=== PATIENT | female | born 1990 | race African-American/Black ===

== ENCOUNTER 2017-09-28 17:05 | Emergency (ER) | payer MEDICAID, OTHER ==
[~2017-09-28] VITALS: Ht 162.6 cm; Wt 112.3 kg
[~2017-09-28 17:05] MED LIST: Z.0.NO CURRENT MEDS
[2017-09-28 17:26] VITALS: BP 177/99; PULSE 120; RESP 16; TEMP 100.7; O2SAT 98
[2017-09-28] MEDS ORDERED: ACETAMINOPHEN 325 MG TAB PO ONE (17:45)
[2017-09-28] MEDS ORDERED: BENZ100 PO (18:22)
[2017-09-28] MEDS ORDERED: AZIT250T3 PO (18:22)
--- NOTE | 2017-09-28 18:27 | PD ---
HPI Chief Complaint: Cold / Flu Symptoms Time Seen by Provider: 17:39 Travel History International Travel<30 days: No Contact w/Intl Traveler<30days: No Traveled to known affect area: No History of Present Illness HPI 26-year-old female that presents to the ED for evaluation of cold-like symptoms. Patient has a cold like symptoms for about 2 days. Per patient started last night. Symptoms of sore throat, congestion and body aches. She states having cough today and more fevers and chills today. She is concerned she might have the flu. She did not get a flu shot this year. Denies any other medical issues. No history of asthma or COPD. She states that she has not been in contact with anybody with the flu. Denies any urinary or bowel movement issues. No abdominal pain. Mainly cough and congestion and body aches. Has not seen anybody for this. No recent travel. PFSH Past Medical History Cardiovascular Problems: Yes (HTN) Diminished Hearing: No Hypertension: Yes Immunizations Current: Yes Tetanus Vaccination: Unknown Influenza Vaccination: No ?: Not : 0 Past Surgical History Oral Surgery: Yes Social History Alcohol Use: No Tobacco Use: No Substance Use: No Allergies-Medications (Allergen,Severity, Reaction): Coded Allergies: No Known Allergies (Verified Adverse Reaction, Unknown, 09/28/17) Reported Meds & Prescriptions Reported Meds & Active Scripts Active Magic Mouthwash Adult Liq (Multi-Ingredient Mouthwash/Gargle) 120 Ml Susp 5 Ml SWISH-SWAL ACHS Each 5mL contains: Nystatin 200,000units, Diphenhydramine 4.25mg, Viscous Lidocaine 10mg, Palm syrup 0.8 mL Azithromycin 250 Mg Tab 250 Mg PO DIRECTED Take 2 tabs (500 mg) on day 1 then 1 tab daily x 4 days. Tessalon Perles (Benzonatate) 100 Mg Cap 200 Mg PO TID PRN Reported No Current Meds (Miscellaneous Medication) Misc Review of Systems Except as stated in HPI: all other systems reviewed are Neg Physical Exam Narrative GENERAL: Well-nourished, well-developed patient in no apparent distress. SKIN: Warm and dry. HEAD: Atraumatic. Normocephalic. EYES: Pupils equal and round reactive to light and accommodation. No scleral icterus. No injection or drainage. ENT: No nasal bleeding or discharge. Mucous membranes pink and moist. TMs are clear with no sign of infection or perforation. No mastoid tenderness. Ear canals are intact bilaterally. No lymphadenopathy. Nostril mucosa is red and moist with clear mucus noted. No sinus tenderness to palpation noted. Tonsils are not enlarged or swollen. No ulvua Deviation. Tongue is midline. NECK: Trachea midline. No JVD. No meningeal signs noted CARDIOVASCULAR: Regular rate and rhythm. RESPIRATORY: No accessory muscle use. Clear to auscultation. Breath sounds equal bilaterally. GASTROINTESTINAL: Abdomen soft, non-tender, nondistended. Hepatic and splenic margins not palpable. MUSCULOSKELETAL: Extremities without clubbing, cyanosis, or edema. No obvious deformities. NEUROLOGICAL: Awake and alert. No obvious cranial nerve deficits. Motor grossly within normal limits. Five out of 5 muscle strength in the arms and legs. Normal speech. PSYCHIATRIC: Appropriate mood and affect; insight and judgment normal. Data Data Last Documented VS Vital Signs Date Time Temp Pulse Resp B/P (MAP) Pulse Ox O2 Delivery O2 Flow Rate FiO2 09/28/17 17:26 100.7 120 16 177/99 (125) 98 Orders Orders Acetaminophen (Tylenol) (09/28/17 17:45) Influenzae A/B Antigen (09/28/17 17:37) Ed Discharge Order (09/28/17 18:28) [facility] Medical Decision Making Medical Screen Exam Complete: Yes Emergency Medical Condition: Yes Medical Record Reviewed: Yes Interpretation(s) Flu negative Differential Diagnosis Influenza versus bronchitis versus sinusitis versus pneumonia Narrative Course 26-year-old female that presents to the ED for evaluation of cold-like symptoms. Patient was properly examined and was found to have signs and symptoms consistent appears to be likely viral illness.. This was done and was negative. Patient was reassured. His tenderness appears to be likely viral illness. We will treat with azithromycin as well as Tessalon Perles cover for bacterial infection. Told to follow up with PCP. Given note for work. See ED if worsening symptoms. Diagnosis Primary Impression: Pharyngitis, acute Qualified Codes: J02.9 - Acute pharyngitis, unspecified Patient Instructions: General Instructions Departure Forms: Tests/Procedures, Work Release Enter return to work date: Oct 01, 2017 Additional Instructions: Motrin and Tylenol for pain and fever. You can use [id number] antihistamine as well as well as Mucinex as needed for runny nose and congestion. Cough drops for cough as needed. Drink plenty of fluids. Follow-up with PCP. See ED for worsening symptoms. Med/Other Pt SpecificInfo: Prescription(s) given Scripts Afharsgv-Jttfryhnxrrmhet-Xionhxxrd Liq (Magic Mouthwash Adult Liq) 120 Ml Susp 5 ML SWISH-SWAL ACHS for Mouth sores, #120 ML 0 Refills Each 5mL contains: Nystatin 200,000units, Diphenhydramine 4.25mg, Viscous Lidocaine 10mg, Palm syrup 0.8 mL Prov: Ankit Hillman MD 09/28/17 Azithromycin (Azithromycin) 250 Mg Tab 250 MG PO DIRECTED for Infection, #6 TAB 0 Refills Take 2 tabs (500 mg) on day 1 then 1 tab daily x 4 days. Prov: Ankit Hillman MD 09/28/17 Benzonatate (Tessalon Perles) 100 Mg Cap 200 MG PO TID Y for COUGH, #20 CAP 0 Refills Prov: Ankit Hillman MD 09/28/17 Disposition: 01 DISCHARGE HOME Condition: Stable Diego King Sep 28, 2017 18:27
[2017-09-28] MEDS ORDERED: MAGICADU2 SWISH-SWAL (18:28)
== END 2017-09-28 18:38 | disposition home or self-care (01) ==
LOC: PHEFT 17:05
DX: J02.9 Acute pharyngitis, unspecified (principal); R09.81 Nasal congestion; R05 Cough; R50.9 Fever, unspecified; I10 Essential (primary) hypertension
CPT/HCPCS: 87804; 99283